=== PATIENT | male | born 1950 | race Caucasian/White ===

== ENCOUNTER 2017-04-15 08:03 | Outpatient (CLI) | payer MEDICARE | END 2017-04-15 08:04 | disposition EMS.NT | LOC: EMS 08:03 | PROVIDERS: ATTEND Surgery | DX: R55 Syncope and collapse (principal) ==

== ENCOUNTER 2017-08-03 12:08 | Emergency (ER) | payer MEDICARE ==
[2017-08-03] MEDS ORDERED: HEPARIN 25,000 UNITS/500 ML NS 25,000 UNIT/500 ML BAG IV STA (12:23)
[2017-08-03] MEDS ORDERED: HEPARIN 5,000 UNIT/ML VIAL IVP STA (12:23)
[2017-08-03] MEDS ORDERED: METOPROLOL 5 MG/5 ML VIAL IVP STA (12:23)
[2017-08-03] MEDS ORDERED: NITROGLYCERIN SL 0.4 MG TABLET SL STA (12:23)
[2017-08-03] MEDS ORDERED: CLOPIDOGREL 300 MG TABLET PO STA (12:23)
--- NOTE | 2017-08-03 12:25 | ED Physician Documentation ---
PD HPI CHEST PAIN - Stated complaint Stated Complaint: CHEST PX - Chief complaint Chief Complaint: Cardiac - History obtained from History obtained from: Patient - History of Present Illness Timing - onset: How many hours ago (1) Timing - onset during: Rest Timing - duration: Hours (1) Timing - details: Abrupt onset, Still present Quality: Pressure, Tightness, Aching, Pain (severe) Location: Substernal, Left chest Radiation: Back Improved by: No: Rest Worsened by: No: Exertion, Inspiration, Movement Associated symptoms: Shortness of air, Nausea. No: Feeling faint / dizzy, General Weakness, Palpitations Similar symptoms before: Has not had sx before (had some anterior CP with exertion 2 days ago. Onset today of CP at rest.) Recently seen: Not recently seen Review of Systems Constitutional: denies: Fever, Chills Nose: denies: Rhinorrhea / runny nose, Congestion Throat: denies: Sore throat Cardiac: reports: Chest pain / pressure. denies: Palpitations Respiratory: denies: Dyspnea, Cough GI: reports: Nausea. denies: Abdominal Pain, Vomiting, Diarrhea Skin: denies: Rash, Lesions Musculoskeletal: denies: Neck pain, Back pain Neurologic: denies: Generalized weakness, Focal weakness, Numbness, Near syncope Psychiatric: denies: Depressed Endocrine: denies: Weight loss, Easy bruising / bleeding Immunocompromised: denies: Immunocompromised PD PAST MEDICAL HISTORY - Past Medical History Past Medical History: No Cardiovascular: None Respiratory: None Neuro: None Endocrine/Autoimmune: None GI: GERD - Past Surgical History Past Surgical History: Yes - Present Medications Home Medications: Ambulatory Orders Medication Instructions Recorded Confirmed No Known Home Medications [No 08/03/17 08/03/17 Known Home Medications] - Allergies Allergies/Adverse Reactions: Allergies Allergy/AdvReac Type Severity Reaction Status Date / Time No Known Drug Allergies Allergy Verified 08/03/17 12:18 - Social History Does the pt smoke?: No Smoking Status: Never smoker Does the pt drink ETOH?: Yes Does the pt have substance abuse?: No PD ED PE NORMAL - Vitals Vital signs reviewed: Yes - General General: Alert and oriented X 3, Well developed/nourished, Other (appears in considerable discomfort. ) - HEENT HEENT: Moist mucous membranes, Pharynx benign - Neck Neck: Supple, no meningeal sign, No adenopathy, No JVD, No bruit - Cardiac Cardiac: RRR, No murmur - Respiratory Respiratory: Clear bilaterally - Abdomen Abdomen: Soft, Non tender - Derm Derm: Warm and dry, No rash. No: Normal color (pale) - Extremities Extremities: No deformity, No tenderness to palpate, Normal ROM s pain, No edema , No calf tenderness / cord - Neuro Neuro: Alert and oriented X 3, No motor deficit Eye Opening: Spontaneous Motor: Obeys Commands Verbal: Oriented GCS Score: 15 Results - Vitals Vitals: Vital Signs - 24 hr 08/03/17 08/03/17 12:11 12:22 Temperature 35.7 C L Heart Rate 74 Respiratory 17 Rate Blood Pressure 174/97 H Blood Pressure 156/97 H [Left] O2 Saturation 100 Oxygen O2 Source Room air - EKG (time done) 12:15` Rate: Rate (enter#) (76) Rhythm: NSR [place]: Normal Intervals: RBBB Ischemia: ST elevation c/w ischemia (V1), Hyperacute T waves (anteriorly V2-3) Compare to prior EKG: Old EKG unavailable - Labs Labs: Laboratory Tests 08/03/17 12:17 WBC 10.9 H RBC 4.97 Hgb 15.0 Hct 43.9 MCV 88.5 MCH 30.2 MCHC 34.1 RDW 13.4 Plt Count 267 MPV 7.2 L Neut # 5.1 Lymph # 4.0 H [place] # 1.4 H Eos # 0.3 Baso # 0.1 Absolute Nucleated RBC 0.00 Nucleated RBC % 0.0 - Rads (name of study) chest Radiology: Prelim report reviewed, EMP read contemporaneously (no acute process) PD MEDICAL DECISION MAKING - ED course Complexity details: considered differential (His story is very consistent with an acute AL. He has an EKG changes which are suggestive of early AL with ST elevation in V1 and peak T waves in V2 and V3. I feel this is remarkable enough changes to treat as an acute AL. He is given STEMI medications. I talked with the ER physician at [facility], Dr. Hazel, who says to transfer the patient. EMS is called. The patient is getting slight improvement with morphine. He did not with nitroglycerin. He will be transferred emergently to [facility] for cardiology intervention.), d/w patient - Critical Care Time(min): 25 Time Includes: Direct patient care, Reassess patient, Document care, Coordinate care, See progress note Data interpretation: Pulse ox, CXR Procedures excluded from critical care time: EKG Departure - Departure Disposition: 02 Transfer Acute Care Hosp Clinical Impression: Chest pain Qualifiers: Chest pain type: precordial pain Qualified Code(s): R07.2 - Precordial pain STEMI (ST elevation myocardial infarction) Qualifiers: Involved coronary artery: left main coronary artery Qualified Code(s): I21.01 - ST elevation (STEMI) myocardial infarction involving left main coronary artery Condition: Stable Record reviewed to determine appropriate education?: Yes
[2017-08-03] MEDS ORDERED: MORPHINE 10 MG/ML VIAL IVP STA (12:26)
[2017-08-03] MEDS ORDERED: NITROGLYCERIN SL 0.4 MG TABLET SL ONE (12:26)
[2017-08-03 12:27] LABS: BASOPHILS # (AUTO) 0.1 10^3/uL (0.0-0.1); BASOPHILS % (AUTO) 0.9 %; EOSINOPHILS # (AUTO) 0.3 10^3/uL (0.0-0.7); EOSINOPHILS % (AUTO) 2.5 %; LYMPHOCYTES % (AUTO) 36.8 %; MEAN CORPUSCULAR HEMOGLOBIN 30.2 pg (27.0-31.0); MEAN CORPUSCULAR HGB CONC 34.1 g/dL (32.0-36.0); MEAN CORPUSCULAR VOLUME 88.5 fL (80.0-94.0); MEAN PLATELET VOLUME 7.2 fL (7.4-11.4); MONOCYTES # (AUTO) 1.4 10^3/uL (0.0-1.0); MONOCYTES % (AUTO) 13.1 %; NEUTROPHILS # (AUTO) 5.1 10^3/uL (1.5-6.6); NEUTROPHILS % (AUTO) 46.7 %; PLT - PLATELET COUNT 267 10^3/uL (130-450); RED BLOOD COUNT 4.97 10^6/uL (4.70-6.10); RED CELL DISTRIBUTION WIDTH 13.4 % (12.0-15.0); WHITE BLOOD COUNT 10.9 x10^3/uL (4.8-10.8)
[2017-08-03] MEDS ORDERED: ASPIRIN CHEW 81 MG TABLET ONE ×2 (12:27→12:29)
[2017-08-03 12:39] VITALS: BP 130/92
[2017-08-03 12:40] LABS: ALBUMIN 4.6 g/dL (3.2-5.5); ALBUMIN/GLOBULIN RATIO 1.4 (1.0-2.2); BILIRUBIN,TOTAL 0.9 mg/dL (0.2-1.0); CALCIUM 9.8 mg/dL (8.5-10.3); TOTAL PROTEIN 7.8 g/dL (6.7-8.2)
--- NOTE | 2017-08-03 12:54 | XRAY Report ---
EXAM: CHEST RADIOGRAPHY EXAM DATE: 08/03/2017 12:33 PM. CLINICAL HISTORY: Chest pain. COMPARISON: None. TECHNIQUE: 1 view. FINDINGS: Lungs/Pleura: No focal consolidation evident. No pleural effusion. No pneumothorax. Mild diminished l shanell volumes. Mediastinum: Within exam limitations, the cardiomediastinal contour is normal. Other: None. IMPRESSION: No acute abnormality demonstrated. [facility] Referring Provider Line: [phone] SITE ID: [id number]
== END 2017-08-03 12:43 | disposition short-term general hospital (02) ==
LOC: ED 12:08
DX: R07.2 Precordial pain (principal); I21.01 ST elevation (STEMI) myocardial infarction involving left main coronary artery; I45.10 Unspecified right bundle-branch block
CPT/HCPCS: 36415; 71010; 80053; 83690; 84484; 85025; 93005; 96365; 96375; 96376; 99284; 99285; A9270

== ENCOUNTER 2017-08-03 12:48 | Outpatient (CLI) | payer MEDICARE | END 2017-08-03 12:49 | disposition short-term general hospital (02) | LOC: EMS 12:48 | PROVIDERS: ATTEND Surgery | DX: I21.09 ST elevation (STEMI) myocardial infarction involving other coronary artery of anterior wall (principal) | CPT/HCPCS: A0425; A0427 ==

== ENCOUNTER 2017-10-26 10:12 | Outpatient (CLI) | payer MEDICARE ==
[2017-10-26 10:34] LABS: BASOPHILS # (AUTO) 0.1 10^3/uL (0.0-0.1); BASOPHILS % (AUTO) 1.1 %; EOSINOPHILS # (AUTO) 0.3 10^3/uL (0.0-0.7); EOSINOPHILS % (AUTO) 5.2 %; HGB - HEMOGLOBIN 12.6 g/dL (14.0-18.0); LYMPHOCYTES # (AUTO) 1.6 10^3/uL (1.5-3.5); LYMPHOCYTES % (AUTO) 25.2 %; MEAN CORPUSCULAR HEMOGLOBIN 30.2 pg (27.0-31.0); MEAN PLATELET VOLUME 7.5 fL (7.4-11.4); MONOCYTES # (AUTO) 0.7 10^3/uL (0.0-1.0); MONOCYTES % (AUTO) 10.9 %; NEUTROPHILS # (AUTO) 3.7 10^3/uL (1.5-6.6); NEUTROPHILS % (AUTO) 57.6 %; PLT - PLATELET COUNT 199 10^3/uL (130-450); RED BLOOD COUNT 4.16 10^6/uL (4.70-6.10); RED CELL DISTRIBUTION WIDTH 13.2 % (12.0-15.0); WHITE BLOOD COUNT 6.4 x10^3/uL (4.8-10.8)
[2017-10-26 10:52] LABS: ALBUMIN 4.4 g/dL (3.2-5.5); ALBUMIN/GLOBULIN RATIO 1.8 (1.0-2.2); ALKALINE PHOSPHATASE 48 IU/L (42-121); ALT ALANINE AMINOTRANSFERASE 36 IU/L (10-60); AST ASPARTATE AMINOTRANSFERASE 27 IU/L (10-42); BILIRUBIN,TOTAL 1.2 mg/dL (0.2-1.0); BUN - BLOOD UREA NITROGEN 14 mg/dL (6-20); CARBON DIOXIDE - CO2 25 mmol/L (21-32); CHLORIDE 105 mmol/L (101-111); CHOL/HDL RATIO 2.8 (<5.0); CHOLESTEROL 80 mg/dL; CREATININE 0.8 mg/dL (0.6-1.2); GFR - MDRD 96 (>89); GLUCOSE 102 mg/dL (70-100); HDL CHOLESTEROL 29 mg/dL; LDL CHOLESTEROL,CALCULATED 43 mg/dL; LDL/HDL RATIO 1.5 (<3.6); SODIUM 137 mmol/L (135-145); TOTAL PROTEIN 6.9 g/dL (6.7-8.2); VLDL CHOLESTEROL 8 mg/dL
== END 2017-10-26 10:13 | disposition home or self-care (01) ==
LOC: LAB 10:12
PROVIDERS: ATTEND Internal Medicine Cardiovascular Disease
DX: I25.10 Atherosclerotic heart disease of native coronary artery without angina pectoris (principal)
CPT/HCPCS: 36415; 80053; 80061; 83721; 85025

== ENCOUNTER 2018-03-26 13:45 | Emergency (ER) | payer MEDICARE ==
[2018-03-26] MEDS ORDERED: oxyCODONE 5 MG TABLET PO STA (16:13)
[2018-03-26] MEDS ORDERED: KETOROLAC 60 MG/2 ML VIAL IM STA (16:13)
[2018-03-26] MEDS ORDERED: DEXAMETHASONE 10 MG/ML VIAL PO STA (16:13)
--- NOTE | 2018-03-26 16:25 | ED Physician Documentation ---
PD HPI BACK PAIN - Stated complaint Stated Complaint: LEFT LEG PX - Chief complaint Chief Complaint: Back Pain - History obtained from History obtained from: Patient, Family - History of Present Illness Timing - onset: How many weeks ago (1) Timing - duration: Weeks (1) Timing - details: Gradual onset Pain level max: 10 Pain level now: 10 Location: Lower, Left Quality: Pain, Spasm, Aching, Similar to prior episodes Associated symptoms: No: Fever, Weakness, Numbness, Incontinent of urine, Unable to urinate, Hematuria, Incontinent of stool Improves with: Rest Worsened by: Movement Contributing factors: Anticoagulated (plavix), Other (doesn't recall any injury) . No: Lifting, Twisting, Trauma, Cancer, IVDA Similar symptoms before: Diagnosis (sciatica) Recently seen: Not recently seen Review of Systems Constitutional: denies: Fever, Chills Nose: denies: Rhinorrhea / runny nose, Congestion Throat: denies: Sore throat Cardiac: denies: Chest pain / pressure Respiratory: denies: Cough GI: denies: Abdominal Pain, Nausea, Vomiting, Diarrhea : denies: Dysuria, Frequency, Hesitancy, Incontinent Skin: denies: Rash Musculoskeletal: denies: Neck pain Neurologic: denies: Focal weakness, Numbness, Headache PD PAST MEDICAL HISTORY - Past Medical History Past Medical History: Yes Cardiovascular: [place] Respiratory: None Endocrine/Autoimmune: None GI: GERD - Past Surgical History Past Surgical History: Yes - Present Medications Home Medications: Ambulatory Orders Medication Instructions Recorded Confirmed Aspirin Chewable [[place] 81 mg ORAL DAILY 03/26/18 03/26/18 Aspirin] Atorvastatin Calcium [Lipitor] 80 mg PO DAILY 03/26/18 03/26/18 Clopidogrel [Plavix] 75 mg PO DAILY 03/26/18 03/26/18 Lisinopril 2.5 mg PO DAILY 03/26/18 03/26/18 Methylprednisolone [Medrol] 4 mg PO DAILY #1 tab.ds.pk 03/26/18 Metoprolol Succinate 12.5 mg PO DAILY 03/26/18 03/26/18 diazePAM [Valium] 5 mg PO TID PRN #15 tablet 03/26/18 oxyCODONE [Roxicodone] 5 mg PO Q6H PRN #12 tablet 03/26/18 - Allergies Allergies/Adverse Reactions: Allergies Allergy/AdvReac Type Severity Reaction Status Date / Time No Known Drug Allergies Allergy Verified 03/26/18 14:16 - Social History Does the pt smoke?: No Smoking Status: Never smoker Does the pt drink ETOH?: No Does the pt have substance abuse?: No - Immunizations Immunizations are current?: Yes PD ED PE NORMAL - Vitals Vital signs reviewed: Yes - General General: Alert and oriented X 3 - HEENT HEENT: Moist mucous membranes - Neck Neck: Supple, no meningeal sign - Cardiac Cardiac: RRR, Strong equal pulses - Respiratory Respiratory: No respiratory distress, Clear bilaterally - Abdomen Abdomen: Soft, Non tender, Non distended - Back Back: No spinal TTP (No midline tenderness to palpation or percussion) - Derm Derm: Warm and dry - Extremities Extremities: Other (normal bilateral lower extremity patellar and ankle jerk reflexes. Normal great toe extension bilaterally. no saddle anesthesia) - Neuro Neuro: Alert and oriented X 3, No motor deficit, No sensory deficit - Psych Psych: Normal mood, Normal affect Results - Vitals Vitals: Vital Signs - 24 hr 03/26/18 03/26/18 14:12 16:53 Temperature 36.8 C Heart Rate 77 55 L Respiratory 20 18 Rate Blood Pressure 115/63 107/54 L O2 Saturation 95 98 Oxygen O2 Source Room air PD MEDICAL DECISION MAKING - ED course Complexity details: re-evaluated patient, considered differential (no cauda equina, no spinal epidural abscess, no fracture, no aortic dissection or evidence of aneursym rupture), d/w patient, d/w family ED course: Patient is a 68-year-old male with what appears to be sciatica of the left side. No evidence of aortic dissection, DVT, acute arterial occlusion. Pain well controlled. No evidence of cauda equina. Will place on pain medication for home as well as a steroid taper. Patient and family counseled regarding signs and symptoms for which I believe and urgent re-evaluation would be necessary. Patient with good understanding of and agreement to plan and is comfortable going home at this time This document was made in part using voice recognition software. While efforts are made to proofread this document, sound alike and grammatical errors may occur. - Sepsis Event Vital Signs: Vital Signs - 24 hr 03/26/18 03/26/18 14:12 16:53 Temperature 36.8 C Heart Rate 77 55 L Respiratory 20 18 Rate Blood Pressure 115/63 107/54 L O2 Saturation 95 98 Oxygen O2 Source Room air Departure - Departure Disposition: 01 Home, Self Care Clinical Impression: Sciatica Qualifiers: Laterality: left Qualified Code(s): M54.32 - Sciatica, left side Condition: Good Instructions: ED Sciatica Follow-Up: Jeromy Agrawal MD [Primary Care Provider] - Within 1 week Prescriptions: diazePAM [Valium] 5 mg PO TID PRN #15 tablet PRN Reason: Spasms Methylprednisolone [Medrol] 4 mg PO DAILY #1 tab.ds.pk oxyCODONE [Roxicodone] 5 mg PO Q6H PRN #12 tablet PRN Reason: back pain Comments: This should improve over the next 2-3 days. Return if you worsen. Please follow-up with your doctor closely for further care. Do not drink alcohol or drive while on narcotic pain medicine. Note that many narcotic pain relievers also contain tylenol/acetaminophen. Please ensure that your total dose of acetaminophen from all sources does not exceed 3 grams (3000mg) per day. You may constipated on this medication, take a stool softener such as "Colace" twice a day while you are on it. Also recommend a qaoo-tlr-bhulerw laxative such as senna or MiraLAX any day that you do not have a bowel movement. If you received narcotic pain medication in the emergency department, do not drive or operate machinery for the next 24 hours. Discharge Date/Time: 03/26/18 16:55
[2018-03-26] MEDS ORDERED: CHERRY SYRUP 10 ML UDC PO ONE (16:27)
[2018-03-26 16:53] VITALS: BP 107/54
== END 2018-03-26 16:55 | disposition home or self-care (01) ==
LOC: ED 13:45
DX: M54.32 Sciatica, left side (principal); Z79.82 Long term (current) use of aspirin; I25.2 Old myocardial infarction; Z79.01 Long term (current) use of anticoagulants
CPT/HCPCS: 96372; 99283; A9270

== ENCOUNTER 2018-04-03 14:59 | Outpatient (CLI) | payer MEDICARE | END 2018-04-03 15:00 | disposition critical access hospital (66) | LOC: EMS 14:59 | PROVIDERS: ATTEND Surgery | DX: M54.9 Dorsalgia, unspecified (principal) | CPT/HCPCS: A0425; A0429 ==

== ENCOUNTER 2018-04-03 15:16 | Emergency (ER) | payer MEDICARE ==
[2018-04-03] MEDS ORDERED: HYDROmorphone 1 MG/ML CARPUJECT IM STA (16:00)
[2018-04-03] MEDS ORDERED: KETAMINE 500 MG/10 ML VIAL IVP STA (17:04)
--- NOTE | 2018-04-03 17:10 | ED Physician Documentation ---
PD HPI BACK PAIN - Stated complaint Stated Complaint: BACK PX - Chief complaint Chief Complaint: Back Pain - History obtained from History obtained from: Patient, Family - History of Present Illness Timing - onset: How many weeks ago (2) Timing - duration: Weeks (2) Timing - details: Gradual onset Pain level max: 10 Pain level now: 10 Location: Lower, Left Quality: Pain, Spasm, Sharp Associated symptoms: No: Fever, Weakness, Numbness, Incontinent of urine, Unable to urinate, Hematuria, Incontinent of stool Improves with: Rest Worsened by: Movement Contributing factors: No: Cancer, IVDA - Additional information Additional information: Patient has outpatient MRI scheduled today. Unable to lie flat for the MRI. Came to the ED for further care. Pain has not been well controlled at home Review of Systems Ten Systems: 10 systems reviewed and negative Constitutional: denies: Fever, Chills GI: denies: Abdominal Pain : denies: Dysuria, Frequency, Hesitancy, Incontinent Skin: denies: Rash Neurologic: denies: Focal weakness, Numbness PD PAST MEDICAL HISTORY - Past Medical History Past Medical History: Yes Cardiovascular: [place] Respiratory: None Endocrine/Autoimmune: None GI: GERD - Past Surgical History Past Surgical History: Yes - Present Medications Home Medications: Ambulatory Orders Medication Instructions Recorded Confirmed Aspirin Chewable [[facility] [place] 81 mg ORAL DAILY 03/26/18 03/26/18 Aspirin] Atorvastatin Calcium [Lipitor] 80 mg PO DAILY 03/26/18 03/26/18 Clopidogrel [Plavix] 75 mg PO DAILY 03/26/18 03/26/18 Lisinopril 2.5 mg PO DAILY 03/26/18 03/26/18 Methylprednisolone [Medrol] 4 mg PO DAILY #1 tab.ds.pk 03/26/18 Metoprolol Succinate 12.5 mg PO DAILY 03/26/18 03/26/18 diazePAM [Valium] 5 mg PO TID PRN #15 tablet 03/26/18 oxyCODONE [Roxicodone] 5 mg PO Q6H PRN #12 tablet 03/26/18 Cyclobenzaprine [Flexeril] 10 mg PO TID PRN #20 tablet 04/03/18 Diclofenac Epolamine [Flector] 1 each TD BID PRN #20 adh..patch 04/03/18 - Allergies Allergies/Adverse Reactions: Allergies Allergy/AdvReac Type Severity Reaction Status Date / Time No Known Drug Allergies Allergy Verified 04/03/18 16:24 - Social History Does the pt smoke?: No Smoking Status: Never smoker Does the pt drink ETOH?: No Does the pt have substance abuse?: No - Immunizations Immunizations are current?: Yes - POLST Patient has POLST: No PD ED PE NORMAL - Vitals Vital signs reviewed: Yes - General General: Alert and oriented X 3, No acute distress, Well developed/nourished - HEENT HEENT: PERRL, Moist mucous membranes - Neck Neck: Supple, no meningeal sign, No bony TTP - Cardiac Cardiac: RRR - Respiratory Respiratory: No respiratory distress, Clear bilaterally - Abdomen Abdomen: Soft, Non tender, Non distended - Back Back: No spinal TTP, Other (no midline TTP, no stepoff or deformity. mild spasm present.) - Derm Derm: Warm and dry - Extremities Extremities: Other (normal bilateral lower extremity patellar and ankle jerk reflexes. Normal great toe extension bilaterally. no saddle anesthesia) - Neuro Neuro: Alert and oriented X 3, No motor deficit, No sensory deficit - Psych Psych: Normal mood, Normal affect Results - Vitals Vitals: Vital Signs - 24 hr 04/03/18 18:35 Temperature 36.6 C Heart Rate 51 L Respiratory 16 Rate Blood Pressure 98/60 O2 Saturation 94 Oxygen O2 Source Room air - Rads (name of study) L spine xray Radiology: Prelim report reviewed, EMP read contemporaneously, See rad report ( no acute abnormality) PD MEDICAL DECISION MAKING - ED course Complexity details: reviewed old records, reviewed results, re-evaluated patient , considered differential (no cauda equina, no spinal epidural abscess, no fracture, no aortic dissection or evidence of aneursym rupture), d/w patient, d/ w family ED course: Patient is a 68-year-old male with low back pain. Radiating down left leg. Appears consistent with sciatica. No evidence of cauda equina or epidural abscess. Plain film imaging does not reveal any acute abnormalities. Pain is well-controlled in the emergency department with ketamine. He is ambulating well. Will place on a Flector patch for home as the oxycodone and Valium does not seem to be helping much. follow-up closely with his doctor. He unfortunately missed his MRI appointment today and it is not available at this time. Will need to be rescheduled. Patient and family counseled regarding signs and symptoms for which I believe and urgent re-evaluation would be necessary. Patient with good understanding of and agreement to plan and is comfortable going home at this time This document was made in part using voice recognition software. While efforts are made to proofread this document, sound alike and grammatical errors may occur. - Sepsis Event Vital Signs: Vital Signs - 24 hr 04/03/18 18:35 Temperature 36.6 C Heart Rate 51 L Respiratory 16 Rate Blood Pressure 98/60 O2 Saturation 94 Oxygen O2 Source Room air Departure - Departure Disposition: Home, Self Care Clinical Impression: Sciatica Qualifiers: Laterality: left Qualified Code(s): M54.32 - Sciatica, left side Condition: Good Instructions: ED Sciatica Follow-Up: your,doctor in 1 week [Other] Prescriptions: Cyclobenzaprine [Flexeril] 10 mg PO TID PRN #20 tablet PRN Reason: Spasms Diclofenac Epolamine [Flector] 1 each TD BID PRN #20 adh..patch PRN Reason: back pain Comments: Return if you worsen. This should improve over the next few days. Follow-up with your doctor for further care. You should have your MRI rescheduled. Discharge Date/Time: 04/03/18 19:13
--- NOTE | 2018-04-03 17:53 | XRAY Report ---
Reason: low back pain Procedure Date: 04/03/2018 Accession Number: [id number] / [id number] Procedure: XR - Lumbar Spine 2 View CPT Code: FULL RESULT: EXAM: LUMBOSACRAL SPINE RADIOGRAPHY EXAM DATE: 04/03/2018 05:30 PM. CLINICAL HISTORY: Back pain. COMPARISONS: None. TECHNIQUE: AP and lateral views. FINDINGS: Alignment: Normal. No spondylolisthesis or scoliosis. Bones: Five eaq-zla-dtnhbch lumbar vertebral bodies are present. No acute fracture. Mild 5% L2 and L3 and L1 superior endplate height loss. Disks: Normal. Disk heights are maintained. Facets: Mild lower lumbar spine facet sclerosis. Sacroiliac Joints: Bilateral SI joint sclerosis is noted. Soft Tissues: Normal. The visualized bowel gas pattern is normal. IMPRESSION: 1. Mild 5% superior endplate height loss at L1, L2 and L3, likely chronic. No definite acute fracture. 2. Facet sclerosis is noted in the lower lumbar spine. There is no significant degenerative disease. [facility]
[2018-04-03 18:36] VITALS: BP 98/60
[2018-04-03] MEDS ORDERED: KETOROLAC 60 MG/2 ML VIAL IVP STA (18:44)
== END 2018-04-03 19:13 | disposition home or self-care (01) ==
LOC: ED 15:16
DX: M54.32 Sciatica, left side (principal); I25.2 Old myocardial infarction; Z79.82 Long term (current) use of aspirin
CPT/HCPCS: 72100; 96372; 96374; 99283; J1170

== ENCOUNTER 2018-08-29 09:53 | Outpatient (CLI) | payer MEDICARE ==
[2018-08-29 10:08] LABS: BASOPHILS % (AUTO) 0.7 %; EOSINOPHILS # (AUTO) 0.2 10^3/uL (0.0-0.7); EOSINOPHILS % (AUTO) 2.9 %; HGB - HEMOGLOBIN 13.8 g/dL (14.0-18.0); LYMPHOCYTES # (AUTO) 1.8 10^3/uL (1.5-3.5); LYMPHOCYTES % (AUTO) 27.4 %; MEAN CORPUSCULAR HEMOGLOBIN 31.3 pg (27.0-31.0); MEAN CORPUSCULAR HGB CONC 34.6 g/dL (32.0-36.0); MEAN CORPUSCULAR VOLUME 90.5 fL (80.0-94.0); MEAN PLATELET VOLUME 6.9 fL (7.4-11.4); MONOCYTES # (AUTO) 0.6 10^3/uL (0.0-1.0); MONOCYTES % (AUTO) 9.2 %; NEUTROPHILS # (AUTO) 3.8 10^3/uL (1.5-6.6); NEUTROPHILS % (AUTO) 59.8 %; PLT - PLATELET COUNT 200 10^3/uL (130-450); RED CELL DISTRIBUTION WIDTH 12.6 % (12.0-15.0); WHITE BLOOD COUNT 6.4 x10^3/uL (4.8-10.8)
[2018-08-29 10:26] LABS: ALBUMIN 4.3 g/dL (3.2-5.5); ALBUMIN/GLOBULIN RATIO 1.6 (1.0-2.2); ALKALINE PHOSPHATASE 37 IU/L (42-121); ALT ALANINE AMINOTRANSFERASE 18 IU/L (10-60); AST ASPARTATE AMINOTRANSFERASE 16 IU/L (10-42); BILIRUBIN,TOTAL 0.7 mg/dL (0.2-1.0); BUN - BLOOD UREA NITROGEN 16 mg/dL (6-20); CALCIUM 9.1 mg/dL (8.5-10.3); CARBON DIOXIDE - CO2 28 mmol/L (21-32); CHLORIDE 105 mmol/L (101-111); CHOL/HDL RATIO 2.4 (<5.0); CHOLESTEROL 89 mg/dL; CREATININE 0.8 mg/dL (0.6-1.2); GFR - MDRD 96 (>89); GLUCOSE 104 mg/dL (70-100); HDL CHOLESTEROL 37 mg/dL; LDL CHOLESTEROL,CALCULATED 39 mg/dL; LDL/HDL RATIO 1.1 (<3.6); SODIUM 139 mmol/L (135-145); VLDL CHOLESTEROL 13 mg/dL
== END 2018-08-29 09:54 | disposition home or self-care (01) ==
LOC: LAB 09:53
PROVIDERS: ATTEND Internal Medicine
DX: I25.5 Ischemic cardiomyopathy (principal); I25.10 Atherosclerotic heart disease of native coronary artery without angina pectoris; R97.20 Elevated prostate specific antigen [PSA]; Z12.5 Encounter for screening for malignant neoplasm of prostate; Z79.899 Other long term (current) drug therapy
CPT/HCPCS: 36415; 80053; 80061; 84443; 85025; G0103; 83721; 84153

== ENCOUNTER 2018-09-07 11:36 | Outpatient (CLI) | payer MEDICARE ==
[2018-09-07 12:09] LABS: BASOPHILS # (AUTO) 0.1 10^3/uL (0.0-0.1); EOSINOPHILS # (AUTO) 0.2 10^3/uL (0.0-0.7); EOSINOPHILS % (AUTO) 2.8 %; HGB - HEMOGLOBIN 14.2 g/dL (14.0-18.0); LYMPHOCYTES # (AUTO) 1.8 10^3/uL (1.5-3.5); LYMPHOCYTES % (AUTO) 28.5 %; MEAN CORPUSCULAR HEMOGLOBIN 31.1 pg (27.0-31.0); MEAN CORPUSCULAR HGB CONC 34.6 g/dL (32.0-36.0); MEAN CORPUSCULAR VOLUME 89.9 fL (80.0-94.0); MEAN PLATELET VOLUME 7.2 fL (7.4-11.4); MEAN RETIC VALUE 107.2; MONOCYTES # (AUTO) 0.5 10^3/uL (0.0-1.0); MONOCYTES % (AUTO) 8.3 %; NEUTROPHILS # (AUTO) 3.8 10^3/uL (1.5-6.6); NEUTROPHILS % (AUTO) 59.4 %; PLT - PLATELET COUNT 238 10^3/uL (130-450); RED BLOOD COUNT 4.57 10^6/uL (4.70-6.10); RED CELL DISTRIBUTION WIDTH 12.3 % (12.0-15.0); WHITE BLOOD COUNT 6.5 x10^3/uL (4.8-10.8)
[2018-09-07 13:28] LABS: FERRITIN 60.8 ng/mL (23.9-336.2)
[2018-09-07 13:32] LABS: FOLATE 11.66 ng/mL (5.90 - >24.8)
[2018-09-07 14:32] LABS: % IRON SATURATION 33 % (20-50); IRON 110 ug/dL (45-182); TOTAL IRON BINDING CAPACITY 332 ug/dL (250-450); TRANSFERRIN 237 mg/dL (180-329)
== END 2018-09-07 11:37 | disposition home or self-care (01) ==
LOC: LAB 11:36
PROVIDERS: ATTEND Internal Medicine
DX: D64.9 Anemia, unspecified (principal); I25.2 Old myocardial infarction; I25.5 Ischemic cardiomyopathy
CPT/HCPCS: 36415; 82607; 82728; 82746; 83540; 84466; 85025; 85044

== ENCOUNTER 2018-11-02 09:07 | Outpatient (CLI) | payer MEDICARE ==
[2018-11-02 09:36] LABS: ABSOLUTE RETICS # AUTO 0.066 10^6/uL (0.020-0.110); HGB - HEMOGLOBIN 13.5 g/dL (14.0-18.0); MEAN CORPUSCULAR HEMOGLOBIN 30.4 pg (27.0-31.0); MEAN CORPUSCULAR HGB CONC 33.7 g/dL (32.0-36.0); MEAN CORPUSCULAR VOLUME 90.1 fL (80.0-94.0); MEAN PLATELET VOLUME 7.3 fL (7.4-11.4); MEAN RETIC VALUE 110.6; RED BLOOD COUNT 4.44 10^6/uL (4.70-6.10); RED CELL DISTRIBUTION WIDTH 13.6 % (12.0-15.0); WHITE BLOOD COUNT 6.5 x10^3/uL (4.8-10.8)
[2018-11-02 09:49] LABS: % IRON SATURATION 18 % (20-50); IRON 61 ug/dL (45-182); TOTAL IRON BINDING CAPACITY 336 ug/dL (250-450); TRANSFERRIN 240 mg/dL (180-329)
[2018-11-02 10:06] LABS: FERRITIN 63.7 ng/mL (23.9-336.2)
== END 2018-11-02 09:08 | disposition home or self-care (01) ==
LOC: LAB 09:07
PROVIDERS: ATTEND Internal Medicine
DX: D64.9 Anemia, unspecified (principal); I25.10 Atherosclerotic heart disease of native coronary artery without angina pectoris; I25.5 Ischemic cardiomyopathy; Z79.899 Other long term (current) drug therapy
CPT/HCPCS: 36415; 82607; 82728; 83540; 84466; 85027; 85044

== ENCOUNTER 2019-06-03 08:41 | Outpatient (CLI) | payer MEDICARE ==
[2019-06-03 09:02] LABS: BASOPHILS # (AUTO) 0.1 10^3/uL (0.0-0.1); EOSINOPHILS # (AUTO) 0.2 10^3/uL (0.0-0.7); EOSINOPHILS % (AUTO) 2.6 %; HGB - HEMOGLOBIN 13.3 g/dL (14.0-18.0); LYMPHOCYTES % (AUTO) 29.3 %; MEAN CORPUSCULAR HEMOGLOBIN 29.3 pg (27.0-31.0); MEAN CORPUSCULAR HGB CONC 31.7 g/dL (32.0-36.0); MEAN CORPUSCULAR VOLUME 92.5 fL (80.0-94.0); MEAN PLATELET VOLUME 9.2 fL (7.4-11.4); MONOCYTES # (AUTO) 0.7 10^3/uL (0.0-1.0); MONOCYTES % (AUTO) 10.1 %; NEUTROPHILS # (AUTO) 3.9 10^3/uL (1.5-6.6); NEUTROPHILS % (AUTO) 56.3 %; PLT - PLATELET COUNT 198 10^3/uL (130-450); RED BLOOD COUNT 4.54 10^6/uL (4.70-6.10); RED CELL DISTRIBUTION WIDTH 12.5 % (12.0-15.0); WHITE BLOOD COUNT 6.9 x10^3/uL (4.8-10.8)
[2019-06-03 09:26] LABS: ALBUMIN 4.1 g/dL (3.2-5.5); ALBUMIN/GLOBULIN RATIO 1.5 (1.0-2.2); ALKALINE PHOSPHATASE 35 IU/L (42-121); ALT ALANINE AMINOTRANSFERASE 22 IU/L (10-60); AST ASPARTATE AMINOTRANSFERASE 18 IU/L (10-42); BILIRUBIN,TOTAL 1.3 mg/dL (0.2-1.0); BUN - BLOOD UREA NITROGEN 17 mg/dL (6-20); CALCIUM 9.4 mg/dL (8.5-10.3); CARBON DIOXIDE - CO2 29 mmol/L (21-32); CHLORIDE 107 mmol/L (101-111); CHOLESTEROL 95 mg/dL; CREATININE 0.9 mg/dL (0.6-1.2); GFR - MDRD 83 (>89); GLUCOSE 109 mg/dL (70-100); HDL CHOLESTEROL 32 mg/dL; LDL CHOLESTEROL,CALCULATED 49 mg/dL; LDL/HDL RATIO 1.5 (<3.6); SODIUM 143 mmol/L (135-145); TOTAL PROTEIN 6.8 g/dL (6.7-8.2); VLDL CHOLESTEROL 14 mg/dL
== END 2019-06-03 08:42 | disposition home or self-care (01) ==
LOC: LAB 08:41
PROVIDERS: ATTEND Internal Medicine
DX: I25.5 Ischemic cardiomyopathy (principal); I25.10 Atherosclerotic heart disease of native coronary artery without angina pectoris; K21.9 Gastro-esophageal reflux disease without esophagitis; R55 Syncope and collapse; Z79.899 Other long term (current) drug therapy
CPT/HCPCS: 36415; 80053; 80061; 83721; 84443; 85025; 85651